=== PATIENT | male | born 1990 | race Caucasian/White ===

== ENCOUNTER 2018-05-26 06:26 | Day surgery (SDC) | payer OTHER, SELFPAY ==
[2018-05-24 12:52] VITALS: BMI 25.9
[2018-05-26] MEDS: LACTATED RINGERS 1,000 ML 42 ML IV (09:46)
[2018-05-26 09:47] VITALS: BP 115/71; PULSE 63; RESP 16; TEMP 36.3; O2SAT 100; BMI 25.9
--- NOTE | 2018-05-26 11:40 | PM.PREOP ---
Pre-operative Note Interval Note Pre-op Check: Yes History & Physical Reviewed by Physician and Yes Exam Performed Changes: No
[2018-05-26] MEDS: CEFAZOLIN 2 GM/100 ML FROZ.PIGGY IV (11:55)
--- NOTE | 2018-05-26 12:17 | SUR.OPER ---
Supine on padded OR bed, head on pillow, arms secured on padded arm boards at <90 degrees abduction, legs uncrossed, safety belt at thigh, tape over blanket over lower legs.
[2018-05-26 12:45] VITALS: BP 102/60; PULSE 59; RESP 20; TEMP 36.6; O2SAT 94
[2018-05-26 12:50] VITALS: BP 95/61; PULSE 60; RESP 18; TEMP 36.9; O2SAT 95
[2018-05-26 12:55] VITALS: BP 95/62; PULSE 59; RESP 18; TEMP 36.9; O2SAT 95
[2018-05-26 13:15] VITALS: BP 128/79; PULSE 89; RESP 20; TEMP 36.9; O2SAT 100
--- NOTE | 2018-05-26 13:38 | PM.OP.1 ---
Operative Date/Time/Diagnoses Date of procedure: 05/26/18 Time of procedure: 11:38 Pre-op diagnosis: Left wrist foreign body Post-op diagnosis: same Procedure & Clinicians Procedure: Left wrist foreign body removal from the center of the median nerve Same procedure as scheduled: Yes Indications: 28-year-old male who was working on his truck on the 11 of May and while using a metal punches small metal shard sparked up striking him in the left wrist. [facility] and had paresthesias in the thenar eminence. We decided to continue to watch it closely to determine whether the symptoms would improve. X-rays showed small metal piece in the volar wrist. He continued to have pain and paresthesias and the pain seemed to be out of proportion for what would be expected if a small piece of metal was in the soft tissue of the wrist. We therefore indicated him for operative exploration and removal of foreign body with repair of damaged structures as indicated. The risks, benefits, alternatives were discussed. Risks included pain, bleeding, infection, damage to nearby structures to include nerves and blood vessels. I discussed that he may not get much improvement from this and that the damage caused by the piece of metal may be permanent. he desired to proceed and signed a written consent form. Surgeon: Frederick Ambrocio Producer Arborist Manager: Adan Alvarenga Click Yes if Unassisted: No Anesthesia Type: General Operative Notes Findings: 2 mm x 1 mm piece of metal was lodged centrally in the median nerve proximal to the carpal tunnel. There was a surrounding the reaction. The piece of metal was removed. Closure Type: primary Specimen(s): none sent Estimated Blood Loss (mL): 1 Blood products transfused: none Tourniquet time (min): 23 Procedure in detail: The patient was met in the preoperative hold area on the day of the procedure. Consent was verified. He desired to proceed. The operative extremity was signed. He was brought to the operating room and surrendered anesthesia. Once general anesthesia been obtained he was placed in the supine position and all bony prominences were well padded. He was then prepped and draped in standard sterile fashion. A surgical time-out was held to confirm the patient procedure, identity, allergies, images, antibiotics. All were in agreement we proceeded. An Esmarch was used to exsanguinate the limb and the tourniquet was elevated 200 mm of mercury. A fluoroscopy was used in to visualize the position of the piece of metal and a 2 cm incision was made directly over this location. The incision was just radial to palmaris longus. Then I dissected between palmaris longus and the FCR tendon and found the underlying median nerve. I then placed an Adson directly on the nerve and took an AP and lateral x-ray. A small piece of metal was found just deep to the Adson and I assume that it was buried within the nerve. I was able to see a small injury to the nerve at that location. I used a 15 blade to split the nerve in line with its fibers at the location of the injury and then used 2 [place] elevators to retract the nerve carefully. The small piece of metal was seen within the nerve and it was plucked out. I then irrigated the wound copiously and closed with 4 0 nylon in the skin. A sterile dressing was applied. He was awakened and transferred to the recovery room. Complications: none Condition: stable Disposition: same day surgery Plan for aftercare: Removable brace for 1 week. Neurontin and vitamin C to be started today. He will advance his activities as tolerated.
== END 2018-05-26 13:25 | disposition home or self-care (01) ==
PROVIDERS: Visit Provider Orthopaedic Surgery
PROC: (CPT 26160; principal; 2018-05-26 11:15)
DX: S60.852A Superficial foreign body of left wrist, initial encounter (principal); Y92.513 Shop (commercial) as the place of occurrence of the external cause; F17.210 Nicotine dependence, cigarettes, uncomplicated
CPT/HCPCS: 10120; J0690; J1100; J1885; J2250; J2405; J2704; J3010

== ENCOUNTER 2018-11-14 16:27 | Emergency (ER) | payer OTHER, SELFPAY ==
[2018-11-14 16:31] VITALS: BP 127/76; PULSE 61; RESP 20; TEMP 37.1; O2SAT 100
--- NOTE | 2018-11-14 17:41 | ED.EYEPROB ---
HPI - Eye Problem <ANALIA Edward - Last Filed: 11/14/18 19:05> General Chief complaint: Eye Problems Stated complaint: RT EYE INJURY Time Seen by Provider: 11/14/18 17:41 Source: patient Mode of arrival: ambulatory Limitations: no limitations History of Present Illness HPI Narrative: 28-year-old healthy male does everyday smoker for complaint of laceration to his right eye area. He states that today he was using appear wire priors that slipped and causing to come back and hit him in the l right eye.. He denies any visual changes with exception of some mild blurriness due to watering of the eye. Trauma is limited to the right eye area. He reports that his tetanus is up-to-date. He reports some slight bleeding from the area. No other injuries or concerns at this timeframe MD chief complaint: eye injury Related Data Home Medications Medication Instructions Recorded Confirmed No Known Home Medications 05/24/18 05/24/18 Allergies Allergy/AdvReac Type Severity Reaction Status Date / Time No Known Drug Allergies Allergy Verified 05/24/18 13:03 Review of Systems <ANALIA Edward - Last Filed: 11/14/18 19:05> Constitutional Denies chills, Denies fever(s), Denies lethargy and Denies weakness Eyes Denies change in vision, Reports eye discharge, Denies irritation and Denies loss of vision Comments: Laceration to the right eye lids ENT Ears, Nose, Mouth, and Throat: Denies change in voice, Denies neck pain and Denies sore throat Cardiovascular Denies chest pain, Denies irregular heart rhythm, Denies lightheadedness, Denies palpitations, Denies dyspnea, Denies dyspnea on exertion and Denies orthopnea Respiratory Denies cough, Denies dyspnea, Denies dyspnea on exertion and Denies wheezing Gastrointestinal Gastrointestinal: Denies abdominal pain, Denies change in bowel habits, Denies diarrhea, Denies nausea and Denies vomiting Genitourinary Denies hematuria, Denies flank pain, Denies urinary incontinence and Denies urinary urgency Musculoskeletal Denies neck pain Neurologic Denies confusion, Denies loss of vision and Denies weakness Psychiatric Denies anxiety, Denies confusion, Denies depression, Denies homicidal ideation and Denies suicidal ideation Endocrine Denies palpitations Allergic/Immunologic Denies wheezing PFSH <ANALIA Edward - Last Filed: 11/14/18 19:05> Medical History Foreign body (Acute) H/O wisdom tooth extraction (Acute) Social History household members: spouse Smoking Status: Current every day smoker alcohol intake: current Social History household members: spouse Smoking Status: Current every day smoker alcohol intake: current Exam <ANALIA Edward - Last Filed: 11/14/18 19:05> Initial Vital Signs Initial Vital Signs: Vital Signs Temperature 98.7 F 11/14/18 16:31 Pulse Rate 61 11/14/18 16:31 Respiratory Rate 20 11/14/18 16:31 Blood Pressure 127/76 11/14/18 16:31 Pulse Oximetry 100 11/14/18 16:31 Const General: cooperative and well developed Nutritional Appearance: well nourished Orientation: alert, awake, oriented x3 and not confused HENDE Mouth: oral mucosae normal and moist mucous membranes Throat: posterior oropharynx normal Eyes Eyelids: eyelid abnormality right upper eyelid (Laceration to cross the margin of the medial right upper eyelid) and right lower eyelid (Laceration to the right lower eyelid that crosses the margin of the eyelid and into the medial canthus and upper eyelid) Conjunctivae: conjunctival abnormality (Fluorescein uptake to large area of the medial right eye) right Sclera: scleral abnormality Cornea: fluorescein used (Corneal abrasion is present to the 3:00 position of the right cornea) <Navjot Lin DO - Last Filed: 11/14/18 21:35> Initial Vital Signs Initial Vital Signs: Vital Signs Temperature 98.7 F 11/14/18 16:31 Pulse Rate 61 11/14/18 16:31 Respiratory Rate 20 11/14/18 16:31 Blood Pressure 127/76 11/14/18 16:31 Pulse Oximetry 100 11/14/18 16:31 Course <ANALIA Edward - Last Filed: 11/14/18 19:05> Orders Ordered: Discontinued Medications Erythromycin (Erythromycin Ophth Oint) 1 applic EYE-RIGHT NOW ONE Stop: 11/14/18 18:49 Last Admin: 11/14/18 18:58 Dose: 1 applic Proparacaine HCl (Parcaine 0.5% Ophth Alexandra) 1 drops EYE-RIGHT NOW ONE Stop: 11/14/18 19:28 Last Admin: 11/14/18 19:28 Dose: 1 bottle Vital Signs - 8 hr 11/14/18 16:31 Temperature 98.7 F Pulse Rate 61 Respiratory Rate 20 Blood Pressure 127/76 Pulse Oximetry 100 <Navjot Lin DO - Last Filed: 11/14/18 21:35> Orders Ordered: Discontinued Medications Erythromycin (Erythromycin Ophth Oint) 1 applic EYE-RIGHT NOW ONE Stop: 11/14/18 18:49 Last Admin: 11/14/18 18:58 Dose: 1 applic Proparacaine HCl (Parcaine 0.5% Ophth Alexandra) 1 drops EYE-RIGHT NOW ONE Stop: 11/14/18 19:28 Last Admin: 11/14/18 19:28 Dose: 1 bottle Vital Signs - 8 hr 11/14/18 16:31 Temperature 98.7 F Pulse Rate 61 Respiratory Rate 20 Blood Pressure 127/76 Pulse Oximetry 100 MDM - Eye Problem <ANALIA Edward - Last Filed: 11/14/18 19:05> MDM Narrative Medical decision making narrative: Fluorescein exam shows fluorescein uptake to the medial aspect of the right eye including abrasion that reaches to the cornea area. Due to laceration involving both upper and lower eyelids and the medial canthus discussed case with Ophthalmology who recommended the patient get sent to [facility] for further evaluation and treatment. Discussed case with ER doctor Dr. Mccord accepted patient. Vital signs are stable. He is sent to [facility] emergency room via POV. visual acuity was normal. Erythromycin was placed to the right eye to cover for corneal abrasion. Discharge Plan Departure Patient Disposition: [facility] Clinical Impression: Corneal abrasion Qualifiers: Encounter type: initial encounter Laterality: right Qualified Code(s): S05.01XA - Injury of conjunctiva and corneal abrasion without foreign body, right eye, initial encounter Laceration of eyelid Qualifiers: Encounter type: initial encounter Laterality: right Qualified Code(s): S01.111A - Laceration without foreign body of right eyelid and periocular area, initial encounter Discharge Date/Time: 11/14/18 19:34 Interventions: ED Discharge Assessment Last Done: 11/14/18 19:31 Activity Restrictions/Additional Instructions: To go to [facility] emergency room for further evaluation and treatment. Do not eat or drink until instructed to by healthcare provider. For any worsening symptoms go to the to the nearest emergency room. Prescriptions: No Action No Known Home Medications RF: 0 Referrals: [facility] [Provider Group] <Navjot Lin DO - Last Filed: 11/14/18 21:35> Cosign ED Attending Lisa Attestation: I was available for consultation during this patient's emergency department encounter
--- NOTE | 2018-11-14 18:08 | ED_ITS ---
HPI - Eye Problem <ANALIA Edward - Last Filed: 11/14/18 19:05> General Chief complaint: Eye Problems Stated complaint: RT EYE INJURY Time Seen by Provider: 11/14/18 17:41 Source: patient Mode of arrival: ambulatory Limitations: no limitations History of Present Illness HPI Narrative: 28-year-old healthy male does everyday smoker for complaint of laceration to his right eye area. He states that today he was using appear wire priors that slipped and causing to come back and hit him in the l right eye.. He denies any visual changes with exception of some mild blurriness due to water ing of the eye. Trauma is limited to the right eye area. He reports that his tetanus is up-to-date. He reports some slight bleeding from the area. No other injuries or concerns at this timeframe MD chief complaint: eye injury Related Data Home Medications Medication Instructions Recorded Confirmed No Known Home Medications 05/24/18 05/24/18 Allergies Allergy/AdvReac Type Severity Reaction Status Date / Time No Known Drug Allergies Allergy Verified 05/24/18 13:03 Review of Systems <ANALIA Edward - Last Filed: 11/14/18 19:05> Constitutional Denies chills, Denies fever(s), Denies lethargy and Denies weakness Eyes Denies change in vision, Reports eye discharge, Denies irritation and Denies loss of vision Comments: Laceration to the right eye lids ENT Ears, Nose, Mouth, and Throat: Denies change in voice, Denies neck pain and Denies sore throat Cardiovascular Denies chest pain, Denies irregular heart rhythm, Denies lightheadedness, Denies palpitations, Denies dyspnea, Denies dyspnea on exertion and Denies orthopnea Respiratory Denies cough, Denies dyspnea, Denies dyspnea on exertion and Denies wheezing Gastrointestinal Gastrointestinal: Denies abdominal pain, Denies change in bowel habits, Denies diarrhea, Denies nausea and Denies vomiting Genitourinary Denies hematuria, Denies flank pain, Denies urinary incontinence and Denies urinary urgency Musculoskeletal Denies neck pain Neurologic Denies confusion, Denies loss of vision and Denies weakness Psychiatric Denies anxiety, Denies confusion, Denies depression, Denies homicidal ideation and Denies suicidal ideation Endocrine Denies palpitations Allergic/Immunologic Denies wheezing PFSH <ANALIA Edward - Last Filed: 11/14/18 19:05> Medical History Foreign body (Acute) H/O wisdom tooth extraction (Acute) Social History household members: spouse Smoking Status: Current every day smoker alcohol intake: current Social History household members: spouse Smoking Status: Current every day smoker alcohol intake: current Exam <AANLIA Edward - Last Filed: 11/14/18 19:05> Initial Vital Signs Initial Vital Signs: Vital Signs Temperature 98.7 F 11/14/18 16:31 Pulse Rate 61 11/14/18 16:31 Respiratory Rate 20 11/14/18 16:31 Blood Pressure 127/76 11/14/18 16:31 Pulse Oximetry 100 11/14/18 16:31 Const General: cooperative and well developed Nutritional Appearance: well nourished Orientation: alert, awake, oriented x3 and not confused HENIA Mouth: oral mucosae normal and moist mucous membranes Throat: posterior oropharynx normal Eyes Eyelids: eyelid abnormality right upper eyelid (Laceration to cross the margin of the medial right upper eyelid) and right lower eyelid (Laceration to the right lower eyelid that crosses the margin of the eyelid and into the medial ca nthus and upper eyelid) Conjunctivae: conjunctival abnormality (Fluorescein uptake to large area of the medial right eye) right Sclera: scleral abnormality Cornea: fluorescein used (Corneal abrasion is present to the 3:00 position of the right cornea) <Navjot Lin DO - Last Filed: 11/14/18 21:35> Initial Vital Signs Initial Vital Signs: Vital Signs Temperature 98.7 F 11/14/18 16:31 Pulse Rate 61 11/14/18 16:31 Respiratory Rate 20 11/14/18 16:31 Blood Pressure 127/76 11/14/18 16:31 Pulse Oximetry 100 11/14/18 16:31 Course <ANALIA Edward - Last Filed: 11/14/18 19:05> Orders Ordered: Discontinued Medications Erythromycin (Erythromycin Ophth Oint) 1 applic EYE-RIGHT NOW ONE Stop: 11/14/18 18:49 Last Admin: 11/14/18 18:58 Dose: 1 applic Proparacaine HCl (Parcaine 0.5% Ophth Alexandra) 1 drops EYE-RIGHT NOW ONE Stop: 11/14/18 19:28 Last Admin: 11/14/18 19:28 Dose: 1 bottle Vital Signs - 8 hr 11/14/18 16:31 Temperature 98.7 F Pulse Rate 61 Respiratory Rate 20 Blood Pressure 127/76 Pulse Oximetry 100 <Navjot Lin DO - Last Filed: 11/14/18 21:35> Orders Ordered: Discontinued Medications Erythromycin (Erythromycin Ophth Oint) 1 applic EYE-RIGHT NOW ONE Stop: 11/14/18 18:49 Last Admin: 11/14/18 18:58 Dose: 1 applic Proparacaine HCl (Parcaine 0.5% Ophth Alexandra) 1 drops EYE-RIGHT NOW ONE Stop: 11/14/18 19:28 Last Admin: 11/14/18 19:28 Dose: 1 bottle Vital Signs - 8 hr 11/14/18 16:31 Temperature 98.7 F Pulse Rate 61 Respiratory Rate 20 Blood Pressure 127/76 Pulse Oximetry 100 MDM - Eye Problem <ANALIA Edward - Last Filed: 11/14/18 19:05> MDM Narrative Medical decision making narrative: Fluorescein exam shows fluorescein uptake to the medial aspect of the right eye including abrasion that reaches to the cornea area. Due to laceration involving both upper and lower eyelids and the medial canthus discussed case with Ophthalmology who recommended the patient get sent to [facility] for further evaluation and treatment. Discussed case with ER doctor Dr. Mccord accepted patient. Vital signs are stable. He is sent to [facility] emergency room via POV. visual acuity was normal. Erythromycin was placed to the right eye to cover for corneal abrasion. Discharge Plan Departure Patient Disposition: [facility] Clinical Impression: Corneal abrasion Qualifiers: Encounter type: initial encounter Laterality: right Qualified Code(s): S05.01XA - Injury of conjunctiva and corneal abrasion without foreign body, right eye, initial encounter Laceration of eyelid Qualifiers: Encounter type: initial encounter Laterality: right Qualified Code(s): S01.111A - Laceration without foreign body of right eyelid and periocular area, initial encounter Discharge Date/Time: 11/14/18 19:34 Interventions: ED Discharge Assessment Last Done: 11/14/18 19:31 Activity Restrictions/Additional Instructions: To go to [facility] emergency room for further evaluation and treatment. Do not eat or drink until instructed to by healthcare provider. For any worsening symptoms go to the to the nearest emergency room. Prescriptions: No Action No Known Home Medications RF: 0 Referrals: [facility] [Provider Group] <Navjot Lin DO - Last Filed: 11/14/18 21:35> Cosign ED Attending Lisa Attestation: I was available for consultation during this patient's emergency department encounter
[2018-11-14] MEDS: ERYTHROMYCIN OPHTH 1 GM OINT 1 APPLIC EYE-RIGHT (18:58)
[2018-11-14] MEDS: PROPARACAINE 0.5% OPHTH SOL 1 DROPS EYE-RIGHT (19:28)
== END 2018-11-14 19:34 | disposition short-term general hospital (02) ==
PROVIDERS: Emergency Provider Nurse Practitioner Family
DX: S05.01XA Injury of conjunctiva and corneal abrasion without foreign body, right eye, initial encounter (principal)
CPT/HCPCS: 99283

== ENCOUNTER 2021-06-24 21:27 | Emergency (ER) | payer OTHER, SELFPAY ==
[2021-06-24 21:30] VITALS: BP 163/87; PULSE 92; RESP 17; TEMP 36.8; O2SAT 100; BMI 27.5
--- NOTE | 2021-06-24 21:58 | ED_ITS ---
HPI - Wound/Laceration General Chief Complaint: Wound/Laceration Stated Complaint: lt index finger cut Time Seen by Provider: 06/24/21 21:54 Source: patient Mode of arrival: Ambulatory Limitations: no limitations History of Present Illness HPI narrative: This is a 31-year-old male who comes to emergency department with complaint of left index finger injury. Patient was using a razor blade to score linoleum tiles and break it and did not realize that he had cut his finger. 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 Patient states he has had slowly improving neuropathy but still does have some decreased sensation. Has normal range of motion. He does not appreciate any new changes to his sensation today. He states his tetanus was updated in 2018. He denies any other medical issues. No allergies to medications. He states he is otherwise healthy with no other injuries. Related Data Home Medications Medication Instructions Recorded Confirmed No Known Home Medications 05/24/18 05/24/18 Allergies Allergy/AdvReac Type Severity Reaction Status Date / Time No Known Drug Allergies Allergy Verified 05/24/18 13:03 Review of Systems Review of Systems ROS Unobtainable: All systems reviewed & are unremarkable except as noted in HPI and below Patient History Medical History (Updated 06/24/21 @ 22:18 by Thea Sinha DO) Foreign body Surgical History H/O wisdom tooth extraction Social History household members: spouse Smoking Status: Current every day smoker alcohol intake: current Smoking Status: Current every day smoker alcohol intake frequency: a few times a week Substance Use Type: does not use Exam Narrative Exam Narrative: GENERAL: Alert and oriented x three, male in mild distress. HEENT: Head normocephalic, atraumatic, EOMI, pupils reactive, face symmetric, moist mucous membranes NECK: Supple, full range of motion CARDIOVASCULAR: Regular rate and rhythm without murmurs, rubs or gallops. RESPIRATORY: Breath sounds equal bilaterally, no wheezes rales or rhonchi. EXTREMITIES: Normal range of motion, no clubbing or edema. Patient has a laceration over the dorsum of the finger of the distal end of the 2nd finger on the left hand crossing the lateral edge of the nail and words and the distal interphalangeal joint on the radial side of the finger. have some gap inch. No obvious bony involvement but is close to that area it is into the subcutaneous tissue. He has sensation to light touch which she states is his typical. Patient is neurovascularly intact. He has full range of motion. NEUROLOGICAL: Cranial nerves II through XII grossly intact. Moving all e xtremities SKIN: Warm, dry, no petechiae, no rashes or lesions. Initial Vital Signs Initial Vital Signs: Vital Signs Temperature 98.2 F 06/24/21 21:30 Pulse Rate 92 H 06/24/21 21:30 Respiratory Rate 17 06/24/21 21:30 Blood Pressure 163/87 H 06/24/21 21:30 Pulse Oximetry 100 06/24/21 21:30 Procedures Laceration Repair Laceration 1: Time of procedure: 23:45 Site: hand (2nd left finger) Side (If applicable): left Size (cm): 1.5 Description: flap and irregular Depth: simple, single layer Local Anesthetic: lidocaine 1% Amount of anesthesia used (mL): 1.5 Pre-repair: wound explored, irrigated extensively and deep structures intact Skin layer closed with: nylon Size (cm): 4-0 Number of sutures: 3 Technique: simple, interrupted Course Orders Ordered: ED Orders 06/24/21 22:04 XR finger LT min 2V Stat Discontinued Medications Lidocaine/Sodium Bicarbonate (Lido 1%/Sod Bicarb 8.4% (10ml) 10 Ml Syringe) 10 ml INJ NOW ONE Stop: 06/24/21 22:05 Last Admin: 06/24/21 22:30 Dose: 10 ml Documented by: VALERIO Vital Signs Vital signs: Vital Signs - 8 hr 06/24/21 21:30 Temperature 98.2 F Pulse Rate 92 H Respiratory Rate 17 Blood Pressure 163/87 H Pulse Oximetry 100 MDM - Wound/Laceration Imaging Data Extremity x-ray #1: Radiologist's Impression: Launch?[address] [address] XRay Report Signed Patient: Surjit Werner MR#: [id number] : 1990 Acct:[id number] Age/Sex: 31 / M Date of Service: 06/24/21 Loc: ED Accession Number: [id number] ?? Procedure: XR finger LT min 2V Ordering Provider: Thea Sinha D.O. PROCEDURE:? XR FINGER LT MIN 2V ? INDICATIONS:? 2nd finger, laceration at distal tip ? TECHNIQUE:? AP hand, 2 views of the 2nd finger(s) acquired.? ? COMPARISON:? None. ? FINDINGS:? ? Bones:? No fractures or dislocations.? No suspicious bony lesions.? ? Soft tissues:? No suspicious soft tissue calcifications.? No radiopaque foreign. ? IMPRESSION:? No visualized acute fracture or dislocation. However, if clinical concern and/or pain persist, short interval imaging followup in 7-10 days is recommended, as occult injury cannot be definitively excluded. ? ? Dictated by: Mary Lechuga M.D. on 06/24/2021 at 22:23 ? ? Approved by: Mary Lechuga M.D. on 06/24/2021 at 22:23?? Discharge Plan Departure Patient Disposition: Home Clinical Impression: Laceration of finger of left hand with damage to nail Instructions: DI for Laceration Repair -- Finger Activity Restrictions/Additional Instructions: You can take and/or ibuprofen as needed for pain. Wear splint to keep it from flexing your fingers so that your stitches do not break. Wound Care: Keep wound(s) clean and dry. Wash daily with soap and water only, then pat dry. Do not use over the counter products (alcohol or peroxide)on the wounds unless instructed by a physician. You may use triple antibiotic ointment to the affected area twice daily. If wound condition worsens (increased/expanding redness, developing fluid blisters, or worsening pain), either contact your doctor for an urgent re- assessment , or return to the Emergency Department. Return to the Emergency Department for any new or worsening symptoms. Return to the ED, urgent care, or vist a primary care doctor for removal or suture or yolanda in 7-10 days. Return if fever greater than 100.4 Fahrenheit, increased swelling, increasing pain or worsening symptoms such as increased discharge or spreading redness, inability to straighten or flex your finger or other new or concerning changes. Prescriptions: No Action No Known Home Medications RF: 0
--- NOTE | 2021-06-24 22:04 | DI.RAD.S_ITS ---
PROCEDURE: XR FINGER LT MIN 2V INDICATIONS: 2nd finger, laceration at distal tip TECHNIQUE: AP hand, 2 views of the 2nd finger(s) acquired. COMPARISON: None. FINDINGS: Bones: No fractures or dislocations. No suspicious bony lesions. Soft tissues: No suspicious soft tissue calcifications. No radiopaque foreign. IMPRESSION: No visualized acute fracture or dislocation. However, if clinical concern and/or pain persist, short interval imaging followup in 7-10 days is recommended, as occult injury cannot be definitively excluded. Dictated by: Mary Lechuga M.D. on 06/24/2021 at 22:23 Approved by: Mary Lechuga M.D. on 06/24/2021 at 22:23
[2021-06-24] MEDS: LIDO 1%/SOD BICARB 8.4% (10ML) 10 ML SYRINGE INJ (22:30)
== END 2021-06-25 00:07 | disposition home or self-care (01) ==
PROVIDERS: Emergency Provider Emergency Medicine
DX: S61.311A Laceration without foreign body of left index finger with damage to nail, initial encounter (principal); W26.9XXA Contact with unspecified sharp object(s), initial encounter
CPT/HCPCS: 12001; 29130; 73140; 99283